=== PATIENT | male | born 1990 | race American Indian/Alaskan Native ===

== ENCOUNTER 2018-12-01 16:10 | Emergency (ER) | payer SELFPAY ==
[2018-12-01 16:48] VITALS: BP 113/68
== END 2018-12-01 18:30 | disposition left against medical advice (07) ==
LOC: ED 16:10
DX: Z00.00 Encounter for general adult medical examination without abnormal findings (principal); Z53.21 Procedure and treatment not carried out due to patient leaving prior to being seen by health care provider